=== PATIENT | male | born 1925 | race Caucasian/White ===

== ENCOUNTER 2016-06-09 10:57 | Observation (INO) | payer OTHER ==
[2016-06-09] MEDS ORDERED: LR 1,000 ML IV ONE (13:47)
[2016-06-09] MEDS ORDERED: LIDOCAINE 1% 30 ML SDV ONE (14:37)
[2016-06-09] MEDS ORDERED: BUPIVACAINE 0.5% 30 ML SDV ONE (14:37)
[2016-06-09] MEDS ORDERED: SKIN ADHESIVE (DERMABOND) 1 EACH TP ONE ×2 (14:37→17:06)
[2016-06-09] MEDS ORDERED: PROPOFOL/EMULSION 500 MG/50 ML BOTTLE IV ONE (15:04)
[2016-06-09] MEDS ORDERED: PROPOFOL 200 MG/20 ML VIAL ONE (15:04)
[2016-06-09] MEDS ORDERED: fentaNYL 250 MCG/5 ML INJ ONE (15:04)
[2016-06-09] MEDS ORDERED: LIDOCAINE 2% 100 MG/5 ML SYR ONE (15:08)
[2016-06-09] MEDS ORDERED: SUGAMMADEX SODIUM 200 MG/2 ML VIAL IVP ONE (17:07)
[2016-06-09] MEDS ORDERED: ONDANSETRON 4 MG/2 ML VIAL IVP PRN (17:35)
[2016-06-09] MEDS ORDERED: OXYCODONE/APAP 5/325 TAB PO PRN (17:35)
--- NOTE | 2016-06-09 17:40 | POSTOPPROG ---
Post Op Note Date of Operation: 06/09/16 Surgeon: Yeol Collazo Bobbin Cleaner: Brett Davis Anesthesia: GET(General Endotracheal) Pre-op Diagnosis: Papillary Thyroid Cancer Post-op Diagnosis: same Procedure: Total Thyroidectomy with CLN dissection Inf/Abcess present in the surg proc area at time of surgery?: No EBL: Minimal Complications: none Specimen(s): thyroid Central nodes
[2016-06-09] MEDS ORDERED: D5W 1/2 NS W/ 20 KCl/L 1,000 ML IV SCH (17:45)
--- NOTE | 2016-06-09 18:29 | GOP ---
[f rep st] OPERATIVE REPORT DATE OF OPERATION: SURGEON: Yoel Collazo MD FURNITURE ARRANGER: Dr. Luiz Davis. PREOPERATIVE DIAGNOSIS: Papillary thyroid cancer. POSTOPERATIVE DIAGNOSIS: Papillary thyroid cancer. PROCEDURE PERFORMED: Thyroidectomy total with central node dissection. FINDINGS: SPECIMENS: Thyroid to permanent pathology; a stitch marked right superior lobe. Also 2nd specimen is central lymph nodes. INDICATIONS: This is an 89-year-old gentleman who presents to the hospital for elective thyroidecto my for a history of papillary thyroid cancer with nodes. DESCRIPTION OF PROCEDURE: Patient was brought to the operating room. After induction of endotrache al anesthesia, in supine position, his neck was prepped with chlorhexidine and draped sterilely. A time-out procedure was performed according to the institutional standards. Local anesthesia infused in the skin and subcutaneous tissues. A transverse incision was made which was then deepened with electrocautery. The platysma was divided and the strap muscles are divided in the midline. The thy roid was identified and brought in the field of dissection. There was a nodule of the thyroid in th e lower pole. The superior parathyroid and recurrent laryngeal nerves were identified on both sides . The inferior parathyroid glands were not identified on either side, but were not thought to be ta drea in the specimen. The superior and inferior thyroid poles were then carefully dissected out and the superior thyroid artery and vein are divided on the right and then the lower pole. Then the gla nd was carefully dissected off the recurrent laryngeal nerve until the mid part of the isthmus. The left side is similarly dissected out and the specimen was then handed off with a stitch marking the superior aspect of the right lobe. A central neck dissection was then performed by taking all the lymphatic tissue from the cricoid cartilage to the sternal notch, taken all of the thymic tissue, an d all the tissue between the strap muscles. After hemostasis was assured to be adequate, Idania, a hemostatic agent, was then placed on the operative field. The strap muscles were then reapproximate d with 3-0 Polysorb as was the platysma and the skin was reapproximated using 4-0 Monocryl. Dermabo nd was applied. Patient was awakened, extubated, and taken to the recovery room in a stable conditi on. Needle, instrument, and sponge counts were assured to be correct x2. COMPLICATIONS: There are no complications. /[id number]/MODL
[2016-06-09] MEDS: METOPROLOL SUCCINATE XR 50 MG TAB PO SCH (22:15)
[2016-06-10 04:58] LABS: IONIZED CALCIUM 1.26 MMOL/L (1.12-1.30)
[2016-06-10 08:25] VITALS: RESP 14
[2016-06-10] MEDS: METOPROLOL SUCCINATE XR 50 MG TAB PO SCH (08:31)
[2016-06-10] MEDS ORDERED: amLODIPine BESYLATE 5 MG TAB PO SCH (09:00)
[2016-06-10] MEDS ORDERED: LOSARTAN POTASSIUM 50 MG TAB PO SCH (09:00)
[2016-06-10] MEDS ORDERED: FUROSEMIDE 20 MG TAB PO SCH (09:00)
[2016-06-10] MEDS ORDERED: ASPIRIN EC 325 MG TAB PO SCH (09:00)
[2016-06-10] MEDS ORDERED: PANTOPRAZOLE SODIUM 40 MG TAB PO PRN (09:00)
[2016-06-10 11:21] VITALS: PULSE 73; TEMP 99; O2SAT 92
[2016-06-10 11:24] VITALS: BP 148/85
--- NOTE | 2016-06-20 13:13 | GDS ---
[f rep st] DISCHARGE SUMMARY This 89-year-old gentleman presents with known papillary thyroid cancer, history of lymphoma, for elective thyroidectomy and central lymph node dissection. FINAL DIAGNOSIS: Papillary thyroid cancer. The patient presented for total thyroidectomy with central ln dissection on 12/2016. DISCHARGE MEDICATIONS: Include losartan 100 mg daily, metoprolol 50 mg b.i.d., aspirin 325 mg daily, amlodipine 5 mg daily, Prilosec 20 mg daily. Levothyroxine is being held. Lasix 20 mg daily and herbal supplements. ALLERGIES: The patient has an allergy to penicillin. SECONDARY DIAGNOSES: Other diagnoses include atrial fibrillation and lymphoma. HOSPITAL COURSE: The patient did well on his hospital stay. He underwent uncomplicated thyroidectomy. Pathology was as noted preoperatively, without any signs of metastatic spread. The patient went home tolerating diet with good pain control. Back on his home medications. Family was involved in his discharge planning. He will follow up in 1 week in the office. /[id number]/MODL MTDD
--- NOTE | 2016-06-28 12:45 | GDS ---
[f rep st] DISCHARGE SUMMARY HISTORY OF PRESENT ILLNESS: This is an 89-year-old gentleman who presents with a history of papilla ry thyroid cancer, for total thyroidectomy and central lymph node dissection. The patient's comorbi d problems include atrial fibrillation, hypertension, hypothyroidism, dyspepsia, and mild congestive heart failure. ALLERGIES: Penicillin. HOSPITAL COURSE: The patient presented on the day of surgery, underwent total thyroidectomy, final pathology consistent with papillary thyroid cancer as its presenting diagnosis, without any signs of metastatic disease. The patient was kept overnight in the hospital due to age and the procedure. He had laboratory studies drawn on the day of discharge, including ionized calcium, which was 1.26, which is in normal range. 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 HOME MEDICATIONS: The patient was restarted on his home medications, which include losartan 100 mg daily, metoprolol XR 50 mg b.i.d., aspirin 325 mg daily, amlodipine 5 mg daily, omeprazole 20 mg jonathan ly p.r.n., levothyroxine 100 mcg daily was to be held until he underwent I-131 ablation of remaining thyroid tissue, and Lasix 20 mg daily. FOLLOWUP: The patient was to follow up with myself in 2 weeks, at which time I-131 ablation will be arranged. He is also to call with any questions or concerns regarding the surgery, such as pain no t controlled by medications, swelling around the incision, temperature, or drainage from the wound, which could be sign of infection. The patient's daughter and son were present for his evaluation and discharge on the day of going [facility]. The patient's diagnosis and prognosis were understood. Verbal confirmation was done. The patie nt had no complications on this hospital stay. /[id number]/MODL
== END 2016-06-10 13:53 | disposition home or self-care (01) ==
LOC: F3E 12:38 → INTOOBSV 12:38 → F3E 18:29
PROVIDERS: ADMIT Surgery; ATTEND Surgery
PROC: 07B10ZX Excision of Right Neck Lymphatic, Open Approach, Diagnostic (ICD-10-PCS; principal; 2016-06-09 14:15)
PROC: 07B20ZX Excision of Left Neck Lymphatic, Open Approach, Diagnostic (ICD-10-PCS; principal; 2016-06-09 14:15)
PROC: 0GTH0ZZ Resection of Right Thyroid Gland Lobe, Open Approach (ICD-10-PCS; principal; 2016-06-09 14:15)
DX: C73 Malignant neoplasm of thyroid gland (principal); I10 Essential (primary) hypertension; E11.9 Type 2 diabetes mellitus without complications; Z85.72 Personal history of non-Hodgkin lymphomas; Z79.84 Long term (current) use of oral hypoglycemic drugs
CPT/HCPCS: 60252; G0378; J2001; J2704; J3010

== ENCOUNTER 2016-07-30 11:56 | Emergency (ER) | payer OTHER ==
[2016-07-30 12:15] VITALS: RESP 16; TEMP 97.7
[2016-07-30] MEDS ORDERED: NS 1,000 ML IV ONE (12:39)
[2016-07-30] MEDS ORDERED: ONDANSETRON 4 MG/2 ML VIAL IVP ONE (12:39)
--- NOTE | 2016-07-30 12:42 | EDPHY ---
H & P Stated Complaint: Pt. states low BP today, fatigue and weak,had diarrhea yesterday Time Seen by Provider: 07/30/16 12:19 HPI/ROS: Chief Complaint: Fatigue, diarrhea HPI: 82-year-old male presenting with fatigue and weakness today. Patient states that he had several episodes of diarrhea yesterday. Prior to that patient had been working in the garden for 2 days exerting himself more than normal and not drinking much water. Patient states he rarely drinks water during the course today. He has a history of CHF and is on Lasix as well. This morning he was feeling unwell in checked his blood pressure and was "low". He called his doctor and told presenting emergency department. Patient denies any chest pain or shortness of breath. No fevers or chills. Some mild nausea but no vomiting. No diarrhea since yesterday. Has had none today. No black stools or blood. Patient states he did not take his medications today. ROS: 10 point Review of Systems is negative except as noted in the HPI. PMH: Lymphoma, hypothyroidism, CHF Medications: Lovastatin, Synthroid, Lasix, metoprolol, amlodipine, omeprazole, aspirin Allergies: Penicillin Social History: No smoking, occasional alcohol, no recreational drug use Family History: non-contributory Physical Exam: Gen: Awake, Alert, No Distress HEENT: Nose: no rhinorrhea Eyes: PERRLA, EOMI Mouth: Dry mucous membranes Neck: Supple, no JVD Chest: nontender, lungs clear to auscultation Heart: S1, S2 normal, no murmur Abd: Soft, non-tender, no guarding Back: no CVA tenderness, no midline tenderness Ext: no edema, non-tender Skin: no rash Neuro: CN II-XII intact, Sensation grossly intact, Strength 5/5 in bilateral upper and lower extremities - Medical/Surgical History Hx Asthma: No Hx Chronic Respiratory Disease: No Hx Diabetes: Yes Hx Cardiac Disease: No Hx Renal Disease: No Hx Cirrhosis: No Hx Alcoholism: No Hx HIV/AIDS: No Hx Splenectomy or Spleen Trauma: No Other PMH: htn, a-fib, hodgkins lymphomna, thyroid nodules, diabetes, choly - Social History Smoking Status: Former smoker Constitutional: Initial Vital Signs Temperature (C) 36.5 C 07/30/16 12:10 Heart Rate 65 07/30/16 12:10 Respiratory Rate 16 07/30/16 12:10 Blood Pressure 121/79 H 07/30/16 12:10 O2 Sat (%) 94 07/30/16 12:10 O2 Delivery Mode Room Air Allergies/Adverse Reactions: Penicillins Allergy (Verified 07/30/16 12:06) Home Medications: Medication Instructions Recorded Losartan Potassium 100 mg PO DAILY 05/26/11 Furosemide [Lasix 20 MG (*)] 20 mg PO DAILY 07/21/15 Metoprolol Succinate Xr [Toprol Xl 50 mg PO BID 07/21/15 50 mg (*)] Amlodipine Besylate [Norvasc] 5 mg PO DAILY 05/22/16 Aspirin EC [Aspirin EC 325 mg (*)] 325 mg PO DAILY 05/22/16 Herbals/Supplements -Info Only 1 ea PO DAILY 05/22/16 Levothyroxine Sodium 100 mcg PO DAILY 05/22/16 Omeprazole [Prilosec 20 mg] 20 mg PO DAILY PRN 05/22/16 Medical Decision Making ED Course/Re-evaluation: Patient has a mild elevation in creatinine 1.7. He is given IV fluid hydration. At had any vomiting or diarrhea here. He has a benign examination. Remainder of his chemistry is unremarkable as is his CBC. He has been encouraged to drink plenty of fluids. Will discharge with follow-up with primary care physician in 2-3 days. - Data Points Laboratory Results: Laboratory Results 07/30/16 13:15 07/30/16 13:15 07/30/16 07/30/16 13:15 13:15 WBC 8.11 10^3/uL 10^3/uL (3.80-9.50) RBC 4.51 10^6/uL 10^6/uL (4.40-6.38) Hgb 13.0 g/dL L g/dL (13.7-17.5) Hct 39.3 % L % (40.0-51.0) MCV 87.1 fL fL (81.5-99.8) MCH 28.8 pg pg (27.9-34.1) MCHC 33.1 g/dL g/dL (32.4-36.7) RDW 15.5 % H % (11.5-15.2) Plt Count 223 10^3/uL 10^3/uL (150-400) MPV 10.1 fL fL (8.7-11.7) Neut % (Auto) 65.2 % % (39.3-74.2) Lymph % (Auto) 22.3 % % (15.0-45.0) [place] % (Auto) 8.8 % % (4.5-13.0) Eos % (Auto) 2.7 % % (0.6-7.6) Baso % (Auto) 0.6 % % (0.3-1.7) Nucleat RBC Rel Count 0.0 % % (0.0-0.2) Absolute Neuts (auto) 5.29 10^3/uL 10^3/uL (1.70-6.50) Absolute Lymphs (auto) 1.81 10^3/uL 10^3/uL (1.00-3.00) Absolute Monos (auto) 0.71 10^3/uL 10^3/uL (0.30-0.80) Absolute Eos (auto) 0.22 10^3/uL 10^3/uL (0.03-0.40) Absolute Basos (auto) 0.05 10^3/uL 10^3/uL (0.02-0.10) Absolute Nucleated RBC 0.00 10^3/uL 10^3/uL (0-0.01) Immature Gran % 0.4 % % (0.0-1.1) Immature Gran # 0.03 10^3/uL 10^3/uL (0.00-0.10) Sodium 138 mEq/L mEq/L (134-144) Potassium 4.3 mEq/L mEq/L (3.5-5.2) Chloride 101 mEq/L mEq/L (97-110) Carbon Dioxide 22 mEq/l mEq/l (22-31) Anion Gap 15 mEq/L mEq/L (8-16) BUN 21 mg/dL mg/dL (7-23) Creatinine 1.4 mg/dL H mg/dL (0.7-1.3) Estimated GFR 48 Glucose 102 mg/dL H mg/dL (70-100) Calcium 9.5 mg/dL mg/dL (8.5-10.4) Total Bilirubin 1.1 mg/dL mg/dL (0.1-1.4) Conjugated Bilirubin 0.4 mg/dL mg/dL (0.0-0.5) Unconjugated Bilirubin 0.7 mg/dL mg/dL (0.0-1.1) AST 25 IU/L IU/L (17-59) ALT 29 IU/L IU/L (21-72) Alkaline Phosphatase 58 IU/L IU/L (38-126) Troponin I Pending Total Protein 7.6 g/dL g/dL (6.3-8.2) Albumin 4.0 g/dL g/dL (3.5-5.0) Lipase 117.0 IU/L IU/L (23-300) Medications Given: Discontinued Medications Sodium Chloride (Ns) 1,000 mls @ 0 mls/hr IV ONCE ONE PRN Reason: Wide Open Stop: 07/30/16 12:40 Last Admin: 07/30/16 13:20 Dose: 1,000 mls Ondansetron HCl (Zofran) 4 mg IVP EDNOW ONE Stop: 07/30/16 12:40 Last Admin: 07/30/16 13:28 Dose: 4 mg Departure - Departure Disposition: Home, Routine, Self-Care Clinical Impression: Dehydration Condition: Good Instructions: Dehydration (ED) Additional Instructions: Make sure to drink plenty of water every day specially on hot summer days. Follow up with primary care physician in 2-3 days for re-evaluation. Return to the emergency department for increasing weakness, uncontrolled diarrhea, nausea, vomiting, or any other concerns. Referrals: Lanie Jaffe MD [Primary Care Provider] - As per Instructions
--- NOTE | 2016-07-30 12:50 | CPEKG ---
Heart Rate: 63 RR Interval: 952 P-R Interval: 216 QRSD Interval: 92 QT Interval: 416 QTC Interval: 426 P [place]: 23 QRS [place]: -18 T Wave [place]: 22 EKG Severity - ABNORMAL ECG - EKG Impression: SINUS RHYTHM EKG Impression: LEFT VENTRICULAR HYPERTROPHY Electronically Signed By: Min Crum 30-Jul-2016 13:26:43
[2016-07-30 13:23] LABS: % IMMATURE GRANULYOCYTES 0.4 % (0.0-1.1); ABSOLUTE IMMATURE GRANULOCYTES 0.03 10^3/uL (0.00-0.10); ADD DIFF? NO; ADD MORPH? NO; ADD SCAN? NO; ATYPICAL LYMPHOCYTE FLAG 10 (0-99); FRAGMENT RBC FLAG 0 (0-99); HEMATOCRIT 39.3 % (40.0-51.0); LEFT SHIFT FLG 0 (0-99); LIPEMIA HEMOLYSIS FLAG 80 (0-99); MEAN CELL HEMOGLOBIN 28.8 pg (27.9-34.1); MEAN CELL HEMOGLOBIN CONCENTR. 33.1 g/dL (32.4-36.7); MEAN CELL VOLUME 87.1 fL (81.5-99.8); MEAN PLATELET VOLUME 10.1 fL (8.7-11.7); PLATELET CLUMPS FLAG 0 (0-99); PLATELET COUNT 223 10^3/uL (150-400); RED BLOOD CELL COUNT 4.51 10^6/uL (4.40-6.38); RED CELL DISTRIBUTION WIDTH 15.5 % (11.5-15.2)
[2016-07-30 13:37] LABS: BILIRUBIN,TOTAL 1.1 mg/dL (0.1-1.4); CARBON DIOXIDE 22 mEq/l (22-31); CHLORIDE 101 mEq/L (97-110); CREATININE 1.4 mg/dL (0.7-1.3); GLOMERULAR FILTRATION RATE 48; TOTAL PROTEIN 7.6 g/dL (6.3-8.2)
[2016-07-30 13:42] LABS: ALANINE AMINOTRANSFERASE 29 IU/L (21-72); ALKALINE PHOSPHATASE 58 IU/L (38-126); ANION GAP 15 mEq/L (8-16); ASPARTATE AMINOTRANSFERASE 25 IU/L (17-59); BILIRUBIN-CONJUGATED 0.4 mg/dL (0.0-0.5); BILIRUBIN-UNCONJUGATED 0.7 mg/dL (0.0-1.1); CALCIUM 9.5 mg/dL (8.5-10.4); GLUCOSE 102 mg/dL (70-100); POTASSIUM 4.3 mEq/L (3.5-5.2); SODIUM 138 mEq/L (134-144)
[2016-07-30 14:05] LABS: TROPONIN I < 0.012 ng/mL (0-0.034)
[2016-07-30 14:10] VITALS: BP 119/80; PULSE 58; O2SAT 91
== END 2016-07-30 14:28 | disposition home or self-care (01) ==
LOC: CED 11:56
DX: E86.0 Dehydration (principal); I10 Essential (primary) hypertension; E11.9 Type 2 diabetes mellitus without complications; I50.9 Heart failure, unspecified; Z79.82 Long term (current) use of aspirin; Z87.891 Personal history of nicotine dependence
CPT/HCPCS: 80048-PO; 80076-PO; 83690-PO; 84484-PO; 85025-PO; 96374; J2405

== ENCOUNTER → 2017-05-31 | Outpatient (CLI) | payer OTHER | LOC: CIMAGING 10:53 | PROVIDERS: ATTEND Family Medicine | DX: R06.9 Unspecified abnormalities of breathing (principal); I50.813 Acute on chronic right heart failure | CPT/HCPCS: 71046-PO ==